=== PATIENT | male | born 1935 | race Caucasian/White ===

== ENCOUNTER 2018-08-12 22:02 | Inpatient (IN) | payer MEDICARE ==
[~2018-08-12 22:02] MED LIST: Heparin 10,000 UNITS/ 10 ML VIAL ONE
--- NOTE | 2018-08-12 23:49 | RAD ---
PORTABLE CHEST: HISTORY: Altered mental status. Weakness. FINDINGS: Heart size is enlarged with a pacemaker in place. There is atelectatic change in the lung bases. IMPRESSION: Cardiomegaly with some bibasilar atelectasis. POS: [facility]
[2018-08-12 23:54] LABS: #Eosinphils 0.6 thou/uL (0.0-0.7); #Lymphocytes 1.4 thou/uL (1.20-3.40); #Monocytes 1.2 thou/uL (0.11-0.59); #Neutrophils 9.1 thou/uL (1.40-6.50); %Basophils 0.4 % (0.0-1.0); %Eosinophils 4.5 % (0.0-10.0); %Lymphocytes 11.4 % (21.0-51.0); %Neutrophils 73.9 % (42.0-75.0); Hemoglobin 10.5 g/dL (14.0-18.0); Mean Corpuscular HGB CONC 34.1 g/dL (32.0-36.0); Mean Corpuscular Hemoglobin 33.2 pg (27.0-31.0); Mean Corpuscular Volume 97.6 fL (78.0-98.0); Mean Platelet Volume 7.7 fL (7.4-10.4); Platelet Count 273 thou/uL (130-400); RBC Distribution Width 13.4 % (11.5-14.5); Red Blood Cell (RBC) Count 3.17 mill/uL (4.70-6.10); White Blood Cell (WBC) Count 12.4 thou/uL (4.8-10.8)
[2018-08-13 00:10] LABS: ALT (SGPT) 17 U/L (8-55); AST (SGOT) 21 U/L (5-34); Albumin 3.8 g/dL (3.4-4.8); Alkaline Phosphatase 105 U/L (40-150); Anion Gap 19 mmol/L (10-20); BUN (Urea Nitrogen) 37 mg/dL (8.4-25.7); Calc. Creatinine Clearance 0 mL/min (70-130); Carbon Dioxide 30 mmol/L (23-31); Chloride 94 mmol/L (98-107); Estimated GFR-MDRD 6; Globulin 2.7 g/dL (2.4-3.5); Glucose 113 mg/dL (83-110); Protein, Total 6.5 g/dL (5.8-8.1); Sodium 139 mmol/L (136-145)
[2018-08-13] MEDS ORDERED: Cefepime 1 GM VIAL ONE (01:10)
[2018-08-13] MEDS ORDERED: Sodium Chloride 0.9% 100 ML ONE (01:10)
[2018-08-13] MEDS ORDERED: Acetaminophen 325 MG TAB PO PRN (03:09)
[2018-08-13] MEDS ORDERED: Senokot S 8.6-50 MG TAB PO PRN (03:09)
[2018-08-13] MEDS ORDERED: Sodium Chloride 0.9% 500 ML IV SCH (03:15)
[2018-08-13] MEDS ORDERED: Sodium Chloride 0.9% 1,000 ML IV SCH (04:00)
--- NOTE | 2018-08-13 04:20 | HP ---
CHIEF COMPLAINT: Generalized weakness. HISTORY OF PRESENT ILLNESS: This is a very pleasant 83-year-old male, who has never been to this hospital before, who comes from [place] for generalized weakness and confusion. The patient apparently lives in an independent living. The daughter had left the room when I saw the patient. Apparently, the patient lives in an independent living, normally gets dialysis, however, missed dialysis yesterday and has been constipated for the past few days, so he had a large bowel movement on Monday. The patient stated he had about three bowel movements and then yesterday he had none. The patient stated for the past couple of days, he has not been eating or drinking very much, just felt really weak and could not get out of bed. The patient's daughter took him to [place] initially. Labs and blood were drawn and the patient was discharged stating to follow up with dialysis in the morning; however, when the patient's daughter tried to get him out of the car, he was very weak and due to this weakness, she brought him to the hospital at [facility]. The patient also complained of some abdominal pain and just generalized weakness. The patient denies any fevers or chills. Denies any chest pain or chest tightness. Denied any shortness of breath. Denies any diarrhea. PAST MEDICAL HISTORY: He has a history of end-stage renal disease, on dialysis. Apparently, he had bilateral nephrectomy. Also, has had a history of cancer, renal cell carcinoma I believe. The patient also has a history of coronary artery disease. Also, has a history of hyperlipidemia and high cholesterol. PAST SURGICAL HISTORY: He has a dialysis fistula on his left arm. He also had bilateral nephrectomy. He has had L4-L5 surgery and surgical history of an appendectomy. ALLERGIES: HE IS ALLERGIC TO CODEINE AND PENICILLIN. MEDICATIONS: 1. Renvela 800 mg three times a day. 2. Sertraline 50 mg daily. 3. Hydrocortisone 20 mg daily. I am not sure why he is on that. SOCIAL HISTORY: Denies any alcohol use, drug use, or smoking history. The patient currently is a full code per patient and again the daughter is not at the bedside. PHYSICAL EXAMINATION: VITAL SIGNS: Temperature of 97.4. His oxygen saturation 100% on room air. Pulse is 73. His blood pressure is 113/34. GENERAL: He is awake, alert, and oriented x2. The patient appears to be very very dehydrated. HEENT: Very dehydrated. Tongue is very dry. The patient is able to speak complete sentences. CV: S1 and S2 present. No murmurs, rubs, or gallops. LUNGS: Clear to auscultation. No rhonchi or wheezes noted. ABDOMEN: Bowel sounds are present x2. Significant pain upon palpation to epigastric area and left lower quadrant. EXTREMITIES: Lower extremity, no edema. Pedal pulses are present x2. NEUROVASCULAR: No focal deficits noted. The patient is able to move all extremities. SKIN: No cuts, lesions, or bruises noted. The patient does have a fistula on his left arm with good bruit. REVIEW OF SYSTEMS: As mentioned, all negative except for the ones mentioned above in the HPI. LABORATORY DATA: WBCs of 12.4, hemoglobin of 10.5, hematocrit of 30.9, and platelets of 273. Chemistry; sodium of 139, potassium of 4.0, BUN of 37, creatinine of 8, lactic acid of 2.9. IMAGING STUDIES: The patient did have a CT abdomen and pelvis which indicated hypodense 1.6 cm lesion to the right lobe of the liver and also multiple bilateral pulmonary nodules. ASSESSMENT AND PLAN: The patient is a very pleasant 83-year-old male who presents to the hospital with complaints of generalized weakness and abdominal pain. 1. Generalized weakness. The patient appears to be significantly dehydrated. We will start the patient on some IV hydration. Consult Dr. Jane for dialysis and continue to monitor. 2. Hypodense lesion in the right lobe of the liver and multiple bilateral pulmonary nodules measuring 1.4 cm. I did mention this to the patient. The patient stated that he does know that he does have lung nodules, I think this should be discussed with the patient's daughter, who currently not at the bedside and it is too early in the morning to call her. I will ask the morning doctor to call the patient's daughter and to be notified about this. 3. End-stage renal disease on dialysis. We will consult Dr. Jane. 4. Dehydration. We will start the patient on some gentle hydration. 5. Lactic acidosis. I believe this is most likely from dehydration. 6. History of kidney cancer, renal carcinoma with bilateral nephrectomy. Again, continue to monitor. The patient is on hydrocortisone for that reason. Job ID: [id number]
[2018-08-13 04:42] VITALS: BMI 28.6
[2018-08-13 06:19] LABS: #Basophils 0.1 thou/uL (0.0-0.2); #Eosinphils 0.6 thou/uL (0.0-0.7); #Lymphocytes 1.6 thou/uL (1.20-3.40); #Monocytes 1.2 thou/uL (0.11-0.59); #Neutrophils 6.1 thou/uL (1.40-6.50); %Basophils 0.6 % (0.0-1.0); %Eosinophils 5.9 % (0.0-10.0); %Lymphocytes 16.5 % (21.0-51.0); %Neutrophils 64.1 % (42.0-75.0); Hemoglobin 10.6 g/dL (14.0-18.0); Mean Corpuscular Hemoglobin 32.4 pg (27.0-31.0); Mean Platelet Volume 7.8 fL (7.4-10.4); Platelet Count 271 thou/uL (130-400); RBC Distribution Width 13.7 % (11.5-14.5); Red Blood Cell (RBC) Count 3.28 mill/uL (4.70-6.10); White Blood Cell (WBC) Count 9.5 thou/uL (4.8-10.8)
[2018-08-13 06:36] LABS: Lactic Acid 2.7 mmol/L (0.5-2.2)
[2018-08-13 06:38] LABS: Anion Gap 22 mmol/L (10-20); BUN (Urea Nitrogen) 39 mg/dL (8.4-25.7); Calc. Creatinine Clearance 10 mL/min (70-130); Calcium 9.8 mg/dL (7.8-10.44); Carbon Dioxide 25 mmol/L (23-31); Chloride 96 mmol/L (98-107); Estimated GFR-MDRD 6; Glucose 104 mg/dL (83-110); Potassium 4.1 mmol/L (3.5-5.1); Sodium 139 mmol/L (136-145)
[2018-08-13] MEDS ORDERED: Hydrocortisone Sod Succ/PF 100 mg/2 ml Vial IVP SCH (08:00)
--- NOTE | 2018-08-13 09:43 | CT ---
PRELIMINARY REPORT/[facility]/EMERGENTY AFTER-HOURS PROCEDURE CT Abdomen and Pelvis Without Contrast EXAM DATE/TIME: 08/13/2018 1:05 AM CLINICAL HISTORY: 83 years old, male; Pain; Abdominal pain; Localized; Left lower quadrant (llq); Patient HX: Er6, m 61 , no prior, PT. Called ems for weakness and diarrhea for two days. PT. Missed dialysis today. Llq julianna n, constipation. TECHNIQUE: Axial computed tomography images of the abdomen and pelvis without contrast. Coronal reformatted images were created and reviewed. COMPARISON: No relevant prior studies available. FINDINGS: Lower thorax: Cardiomegaly. Cardiac device in place. Multiple bilateral pulmonary nodules measuring u p to 1.4 cm in size, most compatible in appearance with metastases, less likely atypical pulmonary infection. ABDOMEN: Liver: Subtle slightly hypodense 1.6 cm lesion in the right lobe of the liver, indeterminate, potenti ally a metastasis. Gallbladder and bile ducts: Normal. No calcified stones. No ductal dilation. Pancreas: Normal. No ductal dilation. Spleen: Normal. No splenomegaly. Adrenals: Normal. No mass. Kidneys and ureters: Prior bilateral nephrectomy. Stomach and bowel: Colonic diverticulosis. No diverticulitis. Mild gaseous distention of the nondepen dent portions of the bowel may contribute to patient discomfort but is not pathologic. No bowel wall thickening or intestinal obstruction. Appendix: Prior appendectomy. PELVIS: Bladder: Unremarkable as visualized. Reproductive: Prostatomegaly. ABDOMEN and PELVIS: Intraperitoneal space: Normal. No free air. No significant fluid collection. Bones/joints: No acute fracture. No dislocation. Soft tissues: Unremarkable. Gynecomastia. Vasculature: Normal. No abdominal aortic aneurysm. Lymph nodes: Normal. No enlarged lymph nodes. IMPRESSION: 1. Subtle slightly hypodense 1.6 cm lesion in the right lobe of the liver, indeterminate, potentially a metastasis. 2. Multiple bilateral pulmonary nodules measuring up to 1.4 cm in size, most compatible in appearance with metastases, less likely atypical pulmonary infection. Thank you for allowing us to participate in the care of your patient. Dictated and Authenticated by: Jae Barrios MD 08/13/2018 1:51 AM Central Time ([place] & [place]) FINAL REPORT CT ABDOMEN AND PELVIS WITHOUT CONTRAST: Date: 08/13/18 FINDINGS/IMPRESSION: I agree with the preliminary report given by Carine. POS: [facility]
--- NOTE | 2018-08-13 09:48 | CT ---
PRELIMINARY REPORT/[facility]/EMERGENTY AFTER-HOURS PROCEDURE CT Head Without Contrast EXAM DATE/TIME: 08/13/2018 12:05 AM CLINICAL HISTORY: 83 years old, male; Signs and symptoms; Altered mental status/memory loss; Patient HX: PT. Called ems for weakness and diarrhea for two days. PT. Missed dialysis today. TECHNIQUE: Axial computed tomography images of the head/brain without contrast. COMPARISON: No relevant prior studies available. FINDINGS: Brain: Volume loss and chronic small vessel ischemic change. No brain edema. No intracranial hemorrha ge. Ventricles: Normal. No ventriculomegaly. Bones/joints: See Mastoid Air Cells Finding. Sinuses: Normal as visualized. No acute sinusitis. Mastoid air cells: Partial opacification of left mastoid air cells with erosion or cortical defect an teriorly (image 4, series 2). There is no overlying inflammation or subperiosteal abscess. No associated skull fracture. Soft tissues: Normal. IMPRESSION: 1. No acute brain findings. 2. Partial opacification of left mastoid air cells with erosion or cortical defect anteriorly (image 4, series 2). There is no overlying inflammation or subperiosteal abscess. No associated skull fractu re. Findings may represent chronic mastoiditis or possibly postsurgical change. Recommend correlation wit h history. Thank you for allowing us to participate in the care of your patient. Dictated and Authenticated by: Jae Barrios MD 08/13/2018 12:19 AM Central Time ([place] & [place]) FINAL REPORT CT BRAIN WITHOUT CONTRAST: Date: 08/13/18 FINDINGS/IMPRESSION: I agree with the preliminary report given by Carine. POS: [facility]
--- NOTE | 2018-08-13 11:25 | PDOC.PN ---
- Subjective Encounter Start Date: 08/13/18 Encounter Start Time: 10:15 Subjective: awakens easily, responds well to verbal questions -: no sob or chest pain - Objective Resuscitation Status - Order Detail: 08/13/18 03:09 Resuscitation Status Routine Resuscitation Status: FULL: Full Resuscitation MAR Reviewed: Yes Vital Signs & Weight: Vital Signs (12 hours) Temp Pulse Resp BP Pulse Ox 08/13/18 09:35 98.4 F 76 24 H 104/54 L 98 08/13/18 08:00 98 08/13/18 03:50 100 Weight Weight 223 lb 4.8 oz Result Diagrams: 08/13/18 06:06 08/13/18 06:06 Phys Exam - Physical Examination HEENT: PERRLA dry mucosa Neck: no JVD, supple Respiratory: no wheezing, no rales Cardiovascular: RRR, no significant murmur Gastrointestinal: soft, non-tender, positive bowel sounds Musculoskeletal: no edema, pulses present Neurological: non-focal, moves all 4 limbs Dx/Plan (1) Acute encephalopathy Code(s): G93.40 - ENCEPHALOPATHY, UNSPECIFIED Status: Acute (2) Physical deconditioning Code(s): R53.81 - OTHER MALAISE Status: Acute (3) ESRD (end stage renal disease) on dialysis Code(s): N18.6 - END STAGE RENAL DISEASE; Z99.2 - DEPENDENCE ON RENAL DIALYSIS Status: Chronic (4) Dyslipidemia Code(s): E78.5 - HYPERLIPIDEMIA, UNSPECIFIED Status: Chronic (5) h/o b/l nephrectomy Status: Chronic (6) H/O renal cell carcinoma Code(s): Z85.528 - PERSONAL HISTORY OF OTHER MALIGNANT NEOPLASM OF KIDNEY Status: Suspected Comment: f/u with [facility] onc (7) Depression Code(s): F32.9 - MAJOR DEPRESSIVE DISORDER, SINGLE EPISODE, UNSPECIFIED Status : Chronic Qualifiers: Depression Type: unspecified Qualified Code(s): F32.9 - Major depressive disorder, single episode, unspecified - Plan d/w daughter, home meds to be updated -: he f/u with hemeonc at [facility], had radiation done to groin after lymph node re -: -section revealed malignancy (daughter is not aware of name), had lung nodu -: -les before which is being serially observed at [facility]. -: In view of all the above will defer liver biopsy to be done at [facility] if neede * . Has PCM, not sure if its MRI compatible for brain mri Will repeat CT if needed in am if needed, currently he responds well to verbal stimuli, is moving all extre. is for HD today one dose 100mg hydrocortisone now (has h/o b/l nephrectomies likely with removal of adrenals?) Review of Systems - Medications/Allergies Allergies/Adverse Reactions: Allergies Allergy/AdvReac Type Severity Reaction Status Date / Time codeine Allergy Verified 08/13/18 03:13 Penicillins Allergy Verified 08/13/18 03:13 Medications: Current Medications Acetaminophen (Tylenol) 650 mg PO Q4H PRN PRN Reason: Headache/Fever/Mild Pain (1-3) Hydrocortisone (Cortef) 40 mg PO QAM [facility] Hydrocortisone (Cortef) 20 mg PO QPM [facility] Hydrocortisone (Cortef) 10 mg PO ASDIR [facility] Sodium Chloride (Normal Saline 0.9%) 1,000 mls @ 50 mls/hr IV .Q20H [facility] Stop: 08/13/18 23:59 Last Admin: 08/13/18 05:02 Dose: Not Given Influenza Virus Vacc Triv Types A&B (Fluzone High-Dose 2017- Syr) 0.5 ml IM .ONCE ONE Stop: 08/14/18 09:01 Last Admin: 08/13/18 08:29 Dose: Not Given Senna/Docusate Sodium (Senokot S) 2 tab PO BID PRN PRN Reason: Constipation Sevelamer Carbonate (Renvela) 1,600 mg PO TID-WM [facility]
--- NOTE | 2018-08-13 11:46 | CON ---
DATE OF CONSULTATION: RENAL MEDICINE HISTORY OF PRESENT ILLNESS: Mr. Lacy is an 83-year-old white male with known history of ESRD, currently on maintenance hemodialysis, on Monday, Monday, and Monday. The patient has been admitted for generalized weakness. He initially went to the ER at [facility] prior to admission, to [facility]. Initial workup there was essentially negative without evidence of CHF or hyperkalemia. For that reason, even though the patient misses regular dialysis, he was not dialyzed. However, on going home, the patient could hardly ambulate at all. For that reason, the patient's daughter brought the patient to [place]. He still could not ambulate. He has generalized weakness. During the initial workup, he had a CAT scan of the abdomen and pelvis and it showed multiple pulmonary nodules on the lower part of the lung. There was also a new finding of liver lesion, which is suspicious for metastases. Please note, this patient has several cancers. He has had renal carcinoma in the past, he also was diagnosed with a right leg sarcoma. In addition, he has had thyroid carcinoma? We are now being consulted for his maintenance hemodialysis. REVIEW OF SYSTEMS: Positive for generalized malaise. Positive for confusion. No nausea. No vomiting. No diarrhea. No constipation. No productive cough. No fever or chills. Decreased appetite. No joint pains. No new skin rash. No headache. Positive for confusion. MEDICATIONS: Home medications; 1. Currently on normal saline at 50 mL/hour. 2. Senokot-S two tablets b.i.d. 3. He is taking hydrocortisone 40 mg in the morning and 20 mg at night and at noontime. This is on nondialysis days. He takes 10 mg after dialysis. 4. Renvela 800 mg three tablets t.i.d. with meals. PAST MEDICAL HISTORY: 1. ESRD, on maintenance hemodialysis, Monday, Monday, and Monday. 2. History of adrenal insufficiency. 3. DJD. 4. Kidney cancer. 5. Thyroid cancer in remission. 6. COPD. 7. History of increased PSA, follicular thyroid cancer. 8. GERD. 9. History of right leg sarcoma. 10. Hypertension. 11. Status post obesity. 12. Status post pneumonia. 13. History of lumbar stenosis. 14. History of bradycardia. PAST SURGICAL HISTORY: Status post cardiac cath, status post pacemaker placement, status post appendectomy, status post AV fistula placement, status post cataract surgery, status post colonoscopy, status post cholecystectomy, and status post bilateral nephrectomy. SOCIAL HISTORY: The patient is , one child, originally from [place], but moved to [place] to join his daughter. Currently no smoking. No alcohol intake. No IV drug abuse. ALLERGIES: UNKNOWN. TRAUMA: None. IMMUNIZATION: Up-to-date. HOSPITALIZATIONS: Please see past medical history. FAMILY HISTORY: No family history of ESRD. PHYSICAL EXAMINATION: VITAL SIGNS: Blood pressure 104/54, heart rate 72, respiratory rate 24, temperature 98.4, and pulse ox 98%. GENERAL: The patient is awake, lethargic, not in distress. SKIN: Adequate turgor. HEENT: He has pinkish conjunctivae. Anicteric sclerae. No neck mass. No carotid bruits. No JVD. CHEST: No deformities. LUNGS: Clear breath sounds. No wheezing. No crackles. HEART: Normal sinus rhythm. No murmur. No gallops or rubs. ABDOMEN: Globular, soft, and nontender. No masses. EXTREMITIES: No edema. No deformities. NEUROLOGIC: Decreased mentation. Moving all extremities. No tremors. LABORATORY DATA: Laboratories of August 13, 2018; white count 9.5, hemoglobin 10.6, hematocrit 32.1. Sodium 139, potassium 4.1, chloride 96, carbon dioxide 25, BUN 39, creatinine 8.43, glucose 104, and calcium 9.8. Lactic acid is 2.7. ASSESSMENT AND PLAN: 1. End-stage renal disease, stable. We will continue current Monday, Monday, and Monday hemodialysis regimen with this patient. Again, fluid removal only as tolerated. Due to the decreased p.o. intake and relatively low blood pressure, my plan today is minimal or no fluid removal with dialysis. He will continue normal saline at 75 mL/h. 2. Adrenal insufficiency. I would suggest restarting back his hydrocortisone at 40 mg in the morning and 20 mg at night. 3. Renal cancer/thyroid cancer/sarcoma-CT scan of the chest showed multiple pulmonary nodules. He may have metastatic lesions. On chest x-ray, this was not noted. 4. Liver lesion-he may have a metastatic lesion in the liver. I would suggest we consider Hematology-Oncology consultation with this patient. 5. Overall, agree with current management. Job ID: [id number]
[2018-08-13] MEDS: Hydrocortisone 10 mg Tablet PO SCH ×2 (12:54→19:52)
[2018-08-13] MEDS: Sevelamer Carbonate 800 MG TAB PO SCH ×2 (12:55→17:53)
[2018-08-13 13:00] LABS: #Eosinphils 0.1 thou/uL (0.0-0.7); #Lymphocytes 0.5 thou/uL (1.20-3.40); #Monocytes 0.4 thou/uL (0.11-0.59); #Neutrophils 11.4 thou/uL (1.40-6.50); %Eosinophils 0.9 % (0.0-10.0); %Lymphocytes 4.1 % (21.0-51.0); %Monocytes 3.1 % (0.0-10.0); %Neutrophils 91.8 % (42.0-75.0); Hemoglobin 9.8 g/dL (14.0-18.0); Mean Corpuscular HGB CONC 33.6 g/dL (32.0-36.0); Mean Corpuscular Hemoglobin 32.8 pg (27.0-31.0); Mean Corpuscular Volume 97.5 fL (78.0-98.0); Mean Platelet Volume 7.7 fL (7.4-10.4); Platelet Count 244 thou/uL (130-400); RBC Distribution Width 13.2 % (11.5-14.5); Red Blood Cell (RBC) Count 2.99 mill/uL (4.70-6.10); White Blood Cell (WBC) Count 12.4 thou/uL (4.8-10.8)
[2018-08-13 13:09] LABS: INR-International Normal Ratio 1.2; PTT 38.1 SEC (22.9-36.1)
[2018-08-13 13:17] LABS: Anion Gap 19 mmol/L (10-20); BUN (Urea Nitrogen) 41 mg/dL (8.4-25.7); Calc. Creatinine Clearance 9 mL/min (70-130); Calcium 9.3 mg/dL (7.8-10.44); Carbon Dioxide 27 mmol/L (23-31); Chloride 96 mmol/L (98-107); Estimated GFR-MDRD 6; Glucose 160 mg/dL (83-110); Potassium 4.6 mmol/L (3.5-5.1); Sodium 137 mmol/L (136-145)
[2018-08-13] MEDS ORDERED: Benzonatate 100 MG CAP PO PRN (23:29)
[2018-08-14] MEDS: Sevelamer Carbonate 800 MG TAB PO SCH ×3 (08:29→17:37)
[2018-08-14] MEDS: Hydrocortisone 10 mg Tablet PO SCH ×3 (08:30→20:23)
[2018-08-14] MEDS ORDERED: Epoetin (ESRD) 20,000 UNITS/ML SC SCH (10:00)
--- NOTE | 2018-08-14 11:03 | PDOC.PN ---
- Subjective Encounter Start Date: 08/14/18 Encounter Start Time: 08:45 Subjective: is alert and oriented well this morning -: no chest pain, is moving all extremities -: no cough or sob - Objective Resuscitation Status - Order Detail: 08/13/18 03:09 Resuscitation Status Routine Resuscitation Status: FULL: Full Resuscitation MAR Reviewed: Yes Vital Signs & Weight: Vital Signs (12 hours) Temp Pulse Resp BP Pulse Ox 08/14/18 07:45 98.6 F 70 20 92/54 L 95 08/14/18 04:26 98.5 F 69 20 137/60 99 08/14/18 00:24 98.5 F 69 20 103/59 L 99 Weight Weight 223 lb 4.8 oz I&O: 08/13/18 08/14/18 08/15/18 06:59 06:59 06:59 Intake Total 810 Output Total 0 Balance 810 Result Diagrams: 08/13/18 12:50 08/13/18 12:50 Phys Exam - Physical Examination HEENT: PERRLA, moist MMs Neck: no JVD, supple Respiratory: no wheezing, no rales Cardiovascular: RRR, no significant murmur Gastrointestinal: soft, non-tender, positive bowel sounds Musculoskeletal: no edema, pulses present Neurological: non-focal, moves all 4 limbs Psychiatric: normal affect, A&O x 3 Dx/Plan (1) Acute encephalopathy Code(s): G93.40 - ENCEPHALOPATHY, UNSPECIFIED Status: Acute Comment: resolving (2) Physical deconditioning Code(s): R53.81 - OTHER MALAISE Status: Acute (3) ESRD (end stage renal disease) on dialysis Code(s): N18.6 - END STAGE RENAL DISEASE; Z99.2 - DEPENDENCE ON RENAL DIALYSIS Status: Chronic (4) Dyslipidemia Code(s): E78.5 - HYPERLIPIDEMIA, UNSPECIFIED Status: Chronic (5) h/o b/l nephrectomy Status: Chronic (6) H/O renal cell carcinoma Code(s): Z85.528 - PERSONAL HISTORY OF OTHER MALIGNANT NEOPLASM OF KIDNEY Status: Suspected Comment: f/u with [facility] onc (7) Depression Code(s): F32.9 - MAJOR DEPRESSIVE DISORDER, SINGLE EPISODE, UNSPECIFIED Status : Chronic Qualifiers: Depression Type: unspecified Qualified Code(s): F32.9 - Major depressive disorder, single episode, unspecified (8) Adrenal insufficiency Code(s): E27.40 - UNSPECIFIED ADRENOCORTICAL INSUFFICIENCY Status: Acute Comment: likely from b/l nephrectomies - Plan is on hydrocortisone tid, slightly higher dose -: sbp around 100 -: had HD yesterday -: MRI brain to r/o cva, has [facility] pcm (daughter says the card is in his w -: -allet), dc plan is to rehab if accepted in am * . Review of Systems - Medications/Allergies Allergies/Adverse Reactions: Allergies Allergy/AdvReac Type Severity Reaction Status Date / Time codeine Allergy Verified 08/13/18 03:13 Penicillins Allergy Verified 08/13/18 03:13 Medications: Current Medications Acetaminophen (Tylenol) 650 mg PO Q4H PRN PRN Reason: Headache/Fever/Mild Pain (1-3) Last Admin: 08/14/18 08:38 Dose: 650 mg Benzonatate (Tessalon) 100 mg PO Q6H PRN PRN Reason: Cough Last Admin: 08/13/18 23:34 Dose: 100 mg Epoetin Kuldeep (Procrit) 7,500 units SC Q7D [facility] Hydrocortisone (Cortef) 40 mg PO QAM [facility] Last Admin: 08/14/18 08:30 Dose: 40 mg Hydrocortisone (Cortef) 20 mg PO QPM [facility] Last Admin: 08/13/18 19:52 Dose: 20 mg Hydrocortisone (Cortef) 10 mg PO 1200 [facility] Last Admin: 08/13/18 12:54 Dose: 10 mg Senna/Docusate Sodium (Senokot S) 2 tab PO BID PRN PRN Reason: Constipation Sevelamer Carbonate (Renvela) 1,600 mg PO TID-WM [facility] Last Admin: 08/14/18 08:29 Dose: 1,600 mg
--- NOTE | 2018-08-14 11:46 | PRG ---
DATE OF SERVICE: 08/14/2018 SERVICE: Renal Medicine. SUBJECTIVE: Mr. Lacy is an 83-year-old white male with ESRD and admitted for mental status change. The patient is now more awake. His energy level is much improved. His initial CT scan of the head did not show any acute intracranial process. However, during the initial workup, he had a CAT scan done in [facility] and partially the lung was visualized, which showed multiple nodules. He tells me that he is being followed up by his Hematology/Oncology in [facility] for this. No other complaints today. His appetite has picked up. OBJECTIVE: VITAL SIGNS: Blood pressure is 92/54, heart rate 70, respiratory rate 20, temperature 98.6, and pulse ox 95%. GENERAL: Awake, alert, comfortable, not in distress. SKIN: Adequate turgor. HEENT: Pinkish conjunctivae. Anicteric sclerae. NECK: No neck mass. No carotid bruits. No JVD. CHEST: No deformities. LUNGS: Clear. Breath sounds, no wheezing. No crackles. HEART: Normal sinus rhythm. No murmurs, gallops, or rubs. ABDOMEN: Globular, soft, nontender. No masses. EXTREMITIES: No edema. No deformities. MEDICATIONS: Medications of 08/14/2018 reviewed. LABORATORY DATA: Laboratories, 08/13/2018, white count 12.4, hemoglobin 9.8. Sodium 137, potassium 4.6, chloride 96, carbon dioxide 27, BUN 41, creatinine 8.64, and calcium 9.3. ASSESSMENT AND PLAN: 1. Borderline anemia. Start Epogen 7500 units subcu every week. 2. Mental status change-this could be secondary to metabolic encephalopathy. On close questioning, the patient has been taking some Tylenol No. 3. We feel that this could have been contributing to his confusion and generalized weakness. This has been discontinued. 3. End-stage renal disease, stable. He underwent hemodialysis yesterday. Minimal fluid was removed due to the low blood pressure. My plan is to resume back the Monday, Monday, and Monday hemodialysis regimen with this patient. 4. Renal cancer/sarcoma-CT scan of the chest showed numerous pulmonary nodules. This is being managed by his oncologist back in [facility]. Job ID: [id number]
[2018-08-15 06:29] LABS: #Lymphocytes 0.8 thou/uL (1.20-3.40); #Monocytes 0.8 thou/uL (0.11-0.59); #Neutrophils 6.5 thou/uL (1.40-6.50); %Basophils 0.3 % (0.0-1.0); %Eosinophils 0.5 % (0.0-10.0); %Lymphocytes 9.8 % (21.0-51.0); %Monocytes 9.7 % (0.0-10.0); %Neutrophils 79.7 % (42.0-75.0); Hemoglobin 9.6 g/dL (14.0-18.0); Mean Corpuscular HGB CONC 33.2 g/dL (32.0-36.0); Mean Corpuscular Hemoglobin 32.2 pg (27.0-31.0); Mean Platelet Volume 7.9 fL (7.4-10.4); Platelet Count 236 thou/uL (130-400); RBC Distribution Width 13.3 % (11.5-14.5); Red Blood Cell (RBC) Count 2.99 mill/uL (4.70-6.10); White Blood Cell (WBC) Count 8.1 thou/uL (4.8-10.8)
[2018-08-15 06:48] LABS: Anion Gap 16 mmol/L (10-20); BUN (Urea Nitrogen) 34 mg/dL (8.4-25.7); Calc. Creatinine Clearance 12 mL/min (70-130); Calcium 9.3 mg/dL (7.8-10.44); Carbon Dioxide 28 mmol/L (23-31); Chloride 97 mmol/L (98-107); Estimated GFR-MDRD 8; Glucose 119 mg/dL (83-110); Potassium 4.1 mmol/L (3.5-5.1); Sodium 137 mmol/L (136-145)
[2018-08-15] MEDS: Hydrocortisone 10 mg Tablet PO SCH ×2 (08:15→12:46)
[2018-08-15] MEDS: Sevelamer Carbonate 800 MG TAB PO SCH ×3 (08:15→17:40)
--- NOTE | 2018-08-15 09:45 | PRG ---
DATE OF SERVICE: 08/15/2018 SUBJECTIVE: Mr. Lacy is an 83-year-old white male with ESRD and currently undergoing hemodialysis. I am at the bedside, supervising his dialysis. We are attempting minimal fluid removal of about 2 L. No other complaints. He is feeling better. His energy level is slightly improved. Please note, he is on hydrocortisone for his adrenal insufficiency. No complaints of chest pain or shortness of breath. OBJECTIVE: VITAL SIGNS: Blood pressure 129/63, heart rate 70, respiratory rate 16, temperature 98.1, pulse ox 94%. GENERAL: Awake, alert, comfortable, supine, not in distress. SKIN: Adequate turgor. HEENT: He has slightly pale conjunctivae. Anicteric sclerae. No neck mass. No carotid bruits. No JVD. CHEST: No deformities. LUNGS: Clear breath sounds. No wheezing. No crackles. HEART: Normal sinus rhythm. No murmurs, gallops, or rubs. ABDOMEN: Globular, soft, and nontender. No masses. EXTREMITIES: No edema. No deformities. MEDICATIONS: Medications of August 15, 2018, were reviewed. LABORATORY DATA: Laboratories of August 15, 2018: White count 8.1, hemoglobin 9.6. Sodium 137, potassium 4.1, chloride 97, carbon dioxide 28, BUN 34, creatinine 6.83, glucose 119, calcium 9.3. ASSESSMENT AND PLAN: 1. Generalized malaise-clinically improved. Continue current hydrocortisone supplementation. 2. End-stage renal disease, stable. We will continue current Monday, Monday , and Monday hemodialysis. Fluid removal only as tolerated. 3. Anemia-continuing weekly Epogen. 4. Metastatic lung lesion-the patient to follow up with his oncologist at [facility]. 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 5. Please note, the patient was givenTylenol with codeine. This could have explained his confusion when he was initially admitted. The medication has been discontinued. He is mentating better. 6. Recheck basic metabolic, CBC in a.m. Job ID: [id number] [facility]
--- NOTE | 2018-08-15 10:29 | PDOC.PN ---
- Subjective Encounter Start Date: 08/15/18 Encounter Start Time: 09:30 Subjective: is getting HD, oriented well, no sob - Objective Resuscitation Status - Order Detail: 08/13/18 03:09 Resuscitation Status Routine Resuscitation Status: FULL: Full Resuscitation MAR Reviewed: Yes Vital Signs & Weight: Vital Signs (12 hours) Temp Pulse Resp BP Pulse Ox 08/15/18 08:13 98.1 F 70 16 129/63 94 L 08/15/18 04:29 98.2 F 70 20 102/58 L 94 L 08/14/18 23:47 98.1 F 69 22 H 105/51 L 97 Weight Weight 223 lb 4.8 oz I&O: 08/14/18 08/15/18 08/16/18 06:59 06:59 06:59 Intake Total 810 780 Output Total 0 0 Balance 810 780 Result Diagrams: 08/15/18 06:03 08/15/18 06:03 Phys Exam - Physical Examination HEENT: PERRLA, moist MMs Neck: no JVD, supple Respiratory: no wheezing, no rales Cardiovascular: RRR, no significant murmur Gastrointestinal: soft, non-tender, positive bowel sounds Musculoskeletal: no edema, pulses present Neurological: non-focal, moves all 4 limbs Psychiatric: A&O x 3 Dx/Plan (1) Acute encephalopathy Code(s): G93.40 - ENCEPHALOPATHY, UNSPECIFIED Status: Resolved (2) Physical deconditioning Code(s): R53.81 - OTHER MALAISE Status: Acute (3) ESRD (end stage renal disease) on dialysis Code(s): N18.6 - END STAGE RENAL DISEASE; Z99.2 - DEPENDENCE ON RENAL DIALYSIS Status: Chronic (4) Dyslipidemia Code(s): E78.5 - HYPERLIPIDEMIA, UNSPECIFIED Status: Chronic (5) h/o b/l nephrectomy Status: Chronic (6) H/O renal cell carcinoma Code(s): Z85.528 - PERSONAL HISTORY OF OTHER MALIGNANT NEOPLASM OF KIDNEY Status: Suspected Comment: f/u with [facility] onc (7) Depression Code(s): F32.9 - MAJOR DEPRESSIVE DISORDER, SINGLE EPISODE, UNSPECIFIED Status : Chronic Qualifiers: Depression Type: unspecified Qualified Code(s): F32.9 - Major depressive disorder, single episode, unspecified (8) Adrenal insufficiency Code(s): E27.40 - UNSPECIFIED ADRENOCORTICAL INSUFFICIENCY Status: Acute Comment: likely from b/l nephrectomies - Plan is on hydrocortisone tid, sbp around 100 -: outpt w/u for liver mass via his onc office -: MRI to r/o cva if his pcm is compatible -: echo results noted, has elevated rv pressures ?sleep apnea -: dc plan to rehab if MRI is -ve * . Review of Systems - Medications/Allergies Allergies/Adverse Reactions: Allergies Allergy/AdvReac Type Severity Reaction Status Date / Time codeine Allergy Verified 08/13/18 03:13 Penicillins Allergy Verified 08/13/18 03:13 Medications: Current Medications Acetaminophen (Tylenol) 650 mg PO Q4H PRN PRN Reason: Headache/Fever/Mild Pain (1-3) Last Admin: 08/14/18 08:38 Dose: 650 mg Benzonatate (Tessalon) 100 mg PO Q6H PRN PRN Reason: Cough Last Admin: 08/13/18 23:34 Dose: 100 mg Epoetin Kuldeep (Procrit) 7,500 units SC Q7D REPLACED BY [facility] Last Admin: 08/14/18 12:45 Dose: 7,500 units Hydrocortisone (Cortef) 40 mg PO QAM REPLACED BY [facility] Last Admin: 08/15/18 08:15 Dose: Not Given Hydrocortisone (Cortef) 20 mg PO QPM REPLACED BY [facility] Last Admin: 08/14/18 20:23 Dose: 20 mg Hydrocortisone (Cortef) 10 mg PO 1200 REPLACED BY [facility] Last Admin: 08/14/18 11:49 Dose: 10 mg Senna/Docusate Sodium (Senokot S) 2 tab PO BID PRN PRN Reason: Constipation Sevelamer Carbonate (Renvela) 1,600 mg PO TID-[facility] Last Admin: 08/15/18 08:15 Dose: Not Given
[2018-08-15 15:44] VITALS: BP 102/52; TEMP 97.9
--- NOTE | 2018-08-16 11:11 | DIS ---
DATE OF ADMISSION: 08/13/2018 DATE OF DISCHARGE: 08/15/2018 DISCHARGE DISPOSITION: To rehab. PRIMARY DISCHARGE DIAGNOSES: 1. Acute encephalopathy, resolved. 2. Severe deconditioning. 3. Adrenal insufficiency with prior history of bilateral nephrectomy. 4. End-stage renal disease, on hemodialysis. 5. History of renal cell carcinoma with prior nephrectomies. 6. Depression. 7. Liver mass and lung masses, for further evaluation with his oncologist, Dr. Leo, at [facility]. PROCEDURES DONE DURING HOSPITALIZATION: Abdominal and pelvic CAT scan without contrast done on the day of admission showed hypodense 1.6 cm lesion in the right lobe of liver, indeterminate, potentially a metastasis and multiple bilateral pulmonary nodules, measuring up to 1.4 cm in size, most compatible in appearance with metastasis. CT brain showed no acute intracranial abnormalities. Echo with 2D Doppler showed an EF of 55% to 60%, markedly enlarged right atrium, severely enlarged right ventricular cavity. LV size was normal. Severe tricuspid regurgitation. Systolic pressures were mildly elevated. Blood cultures x2, no growth. Influenza A and B antigens were negative. White count of 12 with discharge number of 8, H and H 9 and 29, and platelet count 236. Discharge BUN and creatinine 34 and 6.8. Albumin 3.8. LFTs were within normal limits. INPATIENT CONSULT: Dr. Jane for Nephrology. DISCHARGE MEDICATIONS: 1. Hydrocortisone 40 mg p.o. q.a.m. and 20 mg p.o. q.p.m.; 20 mg on Monday, Monday, Monday after dialysis and 10 mg on Monday and . 2. Sertraline 50 mg p.o. at bedtime. 3. Sevelamer 800 mg p.o. three times daily. 4. Folic acid one tablet p.o. daily. ALLERGIES: ALLERGIC TO CODEINE AND PENICILLIN. DISCHARGE PLAN: The patient to follow up with his oncologist, Dr. eLo, at [facility] at the earliest for the liver and lung lesions seen suspicious for metastasis. BRIEF COURSE DURING HOSPITALIZATION: The patient initially got admitted on the with complaints of generalized weakness. The patient also had missed hemodialysis and was constipated prior to arrival. The patient was lethargic with acute encephalopathy on arrival. The patient was given IV hydrocortisone and was placed back on his home dose medication with history of chronic adrenal insufficiency with bilateral nephrectomies, likely removal of adrenal glands as well. His initial CAT scan showed liver mass and also had lung nodules suspicious for metastasis. The patient has known history of renal cell carcinoma and has had close follow-ups with Dr. Leo, his oncologist, at [facility]. In view of this, he is advised to follow up with her at the earliest for further evaluation of these lesions. The patient's encephalopathy resolved after hemodialysis and was hemodynamically stable. He was also neurologically stable, moving all four extremities. He was extremely deconditioned and is being discharged to inpatient rehab for further recuperation prior to going home. Please note, an MRI of the brain could not be done as his pacemaker is [employer] pacemaker, it is not compatible with MRI. A total of 35 minutes was spent on discharge plan. Please see a [id number] documentation on [employer] for the day of discharge. Job ID: [id number]
--- NOTE | 2018-08-17 15:19 | EKG ---
Test Reason : AMS Blood Pressure : / mmHG Vent. Rate : 070 BPM Atrial Rate : 357 BPM P-R Int : 000 ms QRS Dur : 174 ms QT Int : 488 ms P-R-T Axes : 000 -74 091 degrees QTc Int : 527 ms Electronic ventricular pacemaker Confirmed by RAOUL RENEE M.D. ([id number]), supervising film or videotape editor DENISE ACE ([id number]) on 08/17/2018 3:18:56 PM Referred By: Confirmed By:RAOUL RENEE M.D.
== END 2018-08-15 19:31 | DRG 640 ==
LOC: ERS 22:02 → SJJU 08-13 02:00
PROVIDERS: ADMIT Internal Medicine; ATTEND Internal Medicine
PROC: 5A1D70Z Performance of Urinary Filtration, Intermittent, Less than 6 Hours Per Day (ICD-10-PCS; principal; 2018-08-15)
DX: E86.0 Dehydration (principal); N18.6 End stage renal disease; E27.40 Unspecified adrenocortical insufficiency; I12.0 Hypertensive chronic kidney disease with stage 5 chronic kidney disease or end stage renal disease; C78.00 Secondary malignant neoplasm of unspecified lung; G93.40 Encephalopathy, unspecified; E87.2 Acidosis; I25.10 Atherosclerotic heart disease of native coronary artery without angina pectoris; K59.00 Constipation, unspecified; F32.9 Major depressive disorder, single episode, unspecified; K76.9 Liver disease, unspecified; E78.00 Pure hypercholesterolemia, unspecified; M19.90 Unspecified osteoarthritis, unspecified site; Z85.850 Personal history of malignant neoplasm of thyroid; J44.9 Chronic obstructive pulmonary disease, unspecified; K21.9 Gastro-esophageal reflux disease without esophagitis; D64.9 Anemia, unspecified; Z99.2 Dependence on renal dialysis; Z79.899 Other long term (current) drug therapy; Z95.0 Presence of cardiac pacemaker; Z90.49 Acquired absence of other specified parts of digestive tract; Z90.5 Acquired absence of kidney; Z85.528 Personal history of other malignant neoplasm of kidney; Z88.5 Allergy status to narcotic agent; Z88.0 Allergy status to penicillin; Z87.01 Personal history of pneumonia (recurrent); Z98.49 Cataract extraction status, unspecified eye
CPT/HCPCS: 36415; 70450; 71045; 74176; 80048; 80053; 83605; 85025; 85610; 85730; 87040; 87804; 90935; 93005; 93306; 96365; G0257; G8978-GP-CK; G8979-GP-CI; J0692; J1720; J7050; Q4081

== ENCOUNTER 2018-12-04 13:27 | Observation (INO) | payer MEDICARE, OTHER ==
[2018-12-04 14:49] LABS: ALT (SGPT) 20 U/L (8-55); AST (SGOT) 20 U/L (5-34); Albumin 3.9 g/dL (3.4-4.8); Alkaline Phosphatase 159 U/L (40-150); Anion Gap 15 mmol/L (10-20); BUN (Urea Nitrogen) 40 mg/dL (8.4-25.7); Bilirubin, Total 0.7 mg/dL (0.2-1.2); Calc. Creatinine Clearance 0 mL/min (70-130); Calcium 9.9 mg/dL (7.8-10.44); Carbon Dioxide 35 mmol/L (23-31); Chloride 97 mmol/L (98-107); Estimated GFR-MDRD 9; Globulin 2.4 g/dL (2.4-3.5); Glucose 108 mg/dL (83-110); Potassium 4.5 mmol/L (3.5-5.1); Protein, Total 6.3 g/dL (5.8-8.1); Sodium 142 mmol/L (136-145)
--- NOTE | 2018-12-04 14:51 | RAD ---
PORTABLE CHEST ONE VIEW: 12/04/2018 2:22 p.m. HISTORY: Syncope. Fall. Right-sided rib pain. COMPARISON: 08/27/2018 FINDINGS: The heart is enlarged. The aorta is tortuous. A left-sided pacemaker device remains in place. Ther e is a patchy in the right lower lung. This may be due to infection or contusion. No pneumothoraces or large effusions are seen. There is no evidence of german pulmonary edema. POS: ANDRES
[2018-12-04 14:53] LABS: #Eosinphils 0.2 thou/uL (0.0-0.7); #Lymphocytes 0.9 thou/uL (1.20-3.40); #Monocytes 1.3 thou/uL (0.11-0.59); #Neutrophils 8.1 thou/uL (1.40-6.50); %Basophils 0.4 % (0.0-1.0); %Lymphocytes 8.4 % (21.0-51.0); %Monocytes 11.9 % (0.0-10.0); %Neutrophils 77.2 % (42.0-75.0); Hemoglobin 10.5 g/dL (14.0-18.0); Mean Corpuscular HGB CONC 31.5 g/dL (32.0-36.0); Mean Corpuscular Hemoglobin 29.8 pg (27.0-31.0); Mean Corpuscular Volume 94.4 fL (78.0-98.0); Platelet Count 274 thou/uL (130-400); RBC Distribution Width 15.4 % (11.5-14.5); Red Blood Cell (RBC) Count 3.53 mill/uL (4.70-6.10); White Blood Cell (WBC) Count 10.5 thou/uL (4.8-10.8)
[2018-12-04 15:07] LABS: CKMB 1.3 ng/mL (0-6.6)
[2018-12-04] MEDS ORDERED: Lidocaine 5% Patch TD SCH (15:15)
[2018-12-04] MEDS ORDERED: Acetaminophen 500 MG TAB ONE (15:50)
[2018-12-04 18:28] LABS: CKMB 1.2 ng/mL (0-6.6)
[2018-12-04] MEDS ORDERED: Senokot S 8.6-50 MG TAB PO PRN (18:45)
[2018-12-04] MEDS ORDERED: Ondansetron PF 4 MG/2 ML Vial IVP PRN (18:45)
[2018-12-04] MEDS ORDERED: Ondansetron ODT 4 MG TAB PO PRN (18:45)
[2018-12-04 23:28] VITALS: BMI 29.5
[2018-12-04] MEDS: Famotidine 20 MG TAB PO SCH (23:39)
--- NOTE | 2018-12-05 01:20 | HP ---
PRIMARY CARE PHYSICIAN: At [facility]. CHIEF COMPLAINT: Presyncope. HISTORY OF PRESENT ILLNESS: Mr. Lacy is a pleasant 83-year-old male with past medical history of end-stage renal disease, on hemodialysis every Monday, Monday, Monday, history of bilateral nephrectomy with history of renal cell carcinoma, coronary artery disease, hyperlipidemia, and history of adrenal insufficiency, who had presented to [facility] after experiencing a presyncopal episode on Monday and again earlier this morning. He states symptoms appeared when he was sitting in a chair and began to stand up, he states upon standing, he had noticed quite a bit of dizziness that had caused him to fall backwards. He states as he was falling, he had landed back on the chair on his right side and had noticed some right-sided rib pain. He had denied any headache or blurred vision, he had denied any weakness, numbness or tingling, he had denied any chest pain, palpitations, shortness of breath, abdominal pain, nausea or vomiting. He states his primary distribution system operator is Dr. Jane, and had denied missing any days of dialysis. During his initial workup in the emergency department, troponins were found to be indeterminate at 0.057, which trended down to 0.048, creatinine was elevated at 5.97, and estimated GFR of 9. BUN was also elevated at 40. Chest x-ray was performed and it showed the heart is enlarged. Left-sided pacemaker device in place with patchy right lower lung with no pneumothorax or large effusion noted. EKG showed paced ventricular rhythm. He had denied any dizziness or lightheadedness at this time. It is determined that the patient be admitted under observation, and Dr. Jane was consulted for further hemodialysis during hospital course. His vital signs will be monitored including orthostatic vital signs and his pacemaker will be interrogated. REVIEW OF SYSTEMS: All other systems reviewed and found to be negative unless mentioned in the HPI. PAST MEDICAL HISTORY: End-stage renal disease, on hemodialysis; history of renal cell carcinoma status post bilateral nephrectomy, history of coronary artery disease, hyperlipidemia, and adrenal insufficiency. PAST SURGICAL HISTORY: Dialysis fistula placed in the left arm, bilateral nephrectomy, appendectomy, and spinal surgery in L4-L5. SOCIAL HISTORY: Denies any tobacco, alcohol, or illicit drug use. ALLERGIES: HE IS ALLERGIC TO CODEINE AND PENICILLIN. HOME MEDICATIONS: 1. Hydrocortisone 20 mg oral after dialysis Monday, Monday, Monday, 10 mg on non-dialysis days. 2. Sertraline 50 p.o. at bedtime. 3. Renvela 800 mg p.o. 3 times daily. PHYSICAL EXAMINATION: VITAL SIGNS: BP 126/44, pulse 72, respirations 22, temp 97.7 degrees Fahrenheit, O2 saturations 94% on room air. GENERAL: The patient is awake, alert, and oriented x3. No acute distress noted. He is lying comfortably in bed. HEENT: Atraumatic, normocephalic. Pupils are round and reactive to light. Extraocular muscles intact. Moist mucous membranes noted. Oropharynx is clear without exudates or erythema. NECK: Soft and supple. Trachea midline. No JVD noted. CARDIOVASCULAR: Positive S1 and S2. Regular rate and rhythm. The patient with paced rhythm on the monitor. No murmur auscultated. RESPIRATORY: Clear to auscultation bilaterally. No wheezes, rales, or rhonchi. ABDOMEN: Soft, nontender. Bowel sounds present. MUSCULOSKELETAL: Strength 5+ bilaterally in upper and lower extremities. Moves all extremities equal. No edema noted. Fistula noted in left upper extremity with good bruit and thrill. NEUROLOGIC: Cranial nerves 2 through 12 grossly intact. Speech normal and intact. Gait not assessed. SKIN: Warm, dry, and intact. Multiple bruising noted in upper extremities bilaterally. PSYCHIATRIC: Good mood and affect. LABORATORY DATA: WBC 10.5, RBC 3.53, hemoglobin 10.5, platelets 274. Sodium 142, potassium 4.5, anion gap 15, BUN 40, creatinine 5.97, estimated GFR 9, glucose 108, alkaline phosphatase 159, creatine kinase 19, CK-MB 1.3, troponin 0.057, trended down to 0.048. BNP 1000.4. TSH 1.55. DIAGNOSTIC IMAGING: A portable chest x-ray showed the heart is enlarged and the aorta is torturous. A left-sided pacemaker device remains in place. There is a patchy in the right lower lobe, this may be due to infection or contusion. No pneumothorax is noted along with large effusions. No evidence of german pulmonary edema. ASSESSMENT AND PLAN: 1. Presyncopal episodes, this likely can be secondary to orthostatic hypotension, orthostatic vital signs will be checked and pacemaker device will be interrogated. The patient remains asymptomatic at this time. 2. History of end-stage renal disease on dialysis. Nephrology Services, Dr. Jane is consulted and he will be continued on dialysis during hospital course. 3. History of adrenal insufficiency, continue on patient's home regimen of hydrocortisone daily with 20 mg daily on days of dialysis and 10 mg daily on non-dialysis days. 4. Deep venous thrombosis and gastrointestinal prophylaxis. 5. Code status, full code. 6. Surrogate decision maker is the patient's daughter, Mamta Denise. DISPOSITION: Pending further workup and clinical findings. Job ID: [id number]
[2018-12-05] MEDS ORDERED: Lidocaine Patch Removal 1 EACH TOP SCH (03:15)
[2018-12-05 07:07] LABS: #Basophils 0.1 thou/uL (0.0-0.2); #Eosinphils 0.2 thou/uL (0.0-0.7); #Lymphocytes 1.1 thou/uL (1.20-3.40); #Neutrophils 5.5 thou/uL (1.40-6.50); %Basophils 0.7 % (0.0-1.0); %Eosinophils 2.2 % (0.0-10.0); %Lymphocytes 13.7 % (21.0-51.0); %Monocytes 12.9 % (0.0-10.0); %Neutrophils 70.5 % (42.0-75.0); Hemoglobin 10.3 g/dL (14.0-18.0); Mean Corpuscular HGB CONC 31.6 g/dL (32.0-36.0); Mean Corpuscular Hemoglobin 29.4 pg (27.0-31.0); Mean Platelet Volume 8.6 fL (7.4-10.4); Platelet Count 251 thou/uL (130-400); RBC Distribution Width 15.3 % (11.5-14.5); Red Blood Cell (RBC) Count 3.49 mill/uL (4.70-6.10); White Blood Cell (WBC) Count 7.8 thou/uL (4.8-10.8)
[2018-12-05 07:29] LABS: Anion Gap 16 mmol/L (10-20); BUN (Urea Nitrogen) 48 mg/dL (8.4-25.7); Calc. Creatinine Clearance 12 mL/min (70-130); Calcium 9.7 mg/dL (7.8-10.44); Carbon Dioxide 30 mmol/L (23-31); Chloride 98 mmol/L (98-107); Estimated GFR-MDRD 8; Glucose 64 mg/dL (83-110); Potassium 4.5 mmol/L (3.5-5.1); Sodium 139 mmol/L (136-145)
[2018-12-05] MEDS ORDERED: Hydrocortisone 10 mg Tablet PO SCH ×3 (09:00→12:00)
[2018-12-05] MEDS ORDERED: Enoxaparin Sodium 30 MG/0.3 ML SYRINGE SC SCH (09:00)
--- NOTE | 2018-12-05 10:14 | CON ---
DATE OF CONSULTATION: HISTORY OF PRESENT ILLNESS: Mr. Lacy is an 83-year-old white male with ESRD and admitted for a near-syncopal episode. We are now being consulted for his maintenance hemodialysis. He has been having frequent falls. He also has been complaining of right-sided rib pain after his last fall. REVIEW OF SYSTEMS: Positive for near-syncopal episode. Positive for right-sided rib pain. He denies any shortness of breath or abdominal pain. No nausea. No vomiting. Appetite and energy level are fair. No headache. No diplopia. No hematochezia. No melena. No hematemesis. No syncopal episode. MEDICATIONS: Currently on; 1. Lovenox 30 mg subcu daily. 2. Pepcid 20 mg q.p.m. 3. Cortef/hydrocortisone, he takes 20 mg every Monday, Monday, Monday and 10 mg on nondialysis days. 4. Zofran 4 mg q.6 p.r.n. 5. Sertraline 50 mg at bedtime. 6. Renvela 800 mg one tab t.i.d. with meals. PAST MEDICAL HISTORY: 1. ESRD - currently on maintenance hemodialysis Monday, Monday, and Monday. 2. History of adrenal insufficiency. 3. DJD. 4. Kidney cancer, in remission. 5. Thyroid cancer, in remission. 6. Status post bradycardia. 7. Chronic low back pain from lumbar stenosis. 8. Status post pneumonia. 9. Hypertension. 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 11. GERD. 12. History of increased PSA. PAST SURGICAL HISTORY: Status post appendectomy, status post cataract surgery, status post colonoscopy, status post bilateral nephrectomy, status post cholecystectomy, status post cardiac cath, status post pacemaker placement, status post AV fistula placement, status post lymph node excision on the right lower extremity. SOCIAL HISTORY: He is currently in an assisted living. He is a . He has one child, originally from [facility]. He is a retired sheet metal mechanic. Currently, no smoking. No alcohol intake. No IV drug abuse. Status post blood transfusion. ALLERGIES: TO CODEINE AND PENICILLIN. TRAUMA: Status post fall. IMMUNIZATIONS: Up-to-date. HOSPITALIZATIONS: Please see past medical history. PHYSICAL EXAMINATION: VITAL SIGNS: Blood pressure is 126/44, heart rate 72, respiratory rate 22, temperature 97.7, and pulse ox 94% on room air. GENERAL: He is awake, alert, supine, comfortable, not in distress. SKIN: Adequate turgor. HEENT: He has a pinkish conjunctivae. Anicteric sclerae. NECK: No neck mass. No carotid bruits. No JVD. LUNGS: Clear breath sounds. No wheezing. No crackles. HEART: Normal sinus rhythm. No murmur. No gallops. No rubs. ABDOMEN: Globular, soft, and nontender. No masses. EXTREMITIES: No edema. No deformities. NEUROLOGIC: Moving all extremities. Oriented to 3 spheres. No tremors. No asterixis. LABORATORY DATA: Laboratories of December 05, 2018: White count 7.8, hemoglobin 10.3. Sodium 139, potassium 4.5, chloride 98, carbon dioxide 30, BUN 48, creatinine 6.77, glucose 64, and calcium 9.7. TSH is 1.55. IMAGING DATA: On December 04, 2018; chest x-ray shows left-sided pacemaker, patchy right lower lung. No CHF. ASSESSMENT AND PLAN: 1. End-stage renal disease, stable. We will continue current Monday, Monday, and Monday hemodialysis. Fluid removal as tolerated by the patient. Due to the recent fall, we will hold off heparin temporarily with this patient. Please note, he is on prophylactic Lovenox. 2. Near-syncopal episode - the patient placed on telemetry. We will observe for his hemodynamics status. 3. Adrenal insufficiency, currently on hydrocortisone. 4. Hyperphosphatemia. Resume Renvela 800 mg one tab t.i.d. with meals. Agree with current management. Job ID: [id number]
[2018-12-05] MEDS: Acetaminophen 325 MG TAB PO PRN ×2 (11:09→15:34)
[2018-12-05] MEDS: Sevelamer Carbonate 800 MG TAB PO SCH (15:34)
[2018-12-05] MEDS: Famotidine 20 MG TAB PO SCH (20:19)
--- NOTE | 2018-12-06 07:55 | PDOC.PN ---
- Subjective Encounter Start Date: 12/05/18 Encounter Start Time: 13:54 Subjective: Patient states he feels well but with pain in right lower back/ribs. -: Worse with palpation and certain movements. Pain with coughing. -: Denies feeling short of breath. Reports it is the area that hit the wooden arm of his recliner when he fell backwards. He denies any dizzy spells. States he often gets lightheaded if he stands too quickly and feels he did this which caused him to fall backwards into the chair. No central chest pain. No hemoptysis. Able to take deep breaths despite discomfort. Has been tolerating a regular diet. No nauesa or vomiting. No abdominal pain. Has remained afebrile. - Objective Resuscitation Status - Order Detail: 12/04/18 18:38 Resuscitation Status Routine Co-Sign Provider: Resuscitation Status: FULL: Full Resuscitation Vital Signs & Weight: Vital Signs (12 hours) Temp Pulse Resp BP Pulse Ox 12/06/18 07:20 97.9 F 77 20 116/58 L 98 12/06/18 03:01 98 F 70 18 114/56 L 98 12/05/18 20:05 97.8 F 72 16 115/56 L 93 L Weight Weight 229 lb 11.2 oz I&O: 12/05/18 12/06/18 12/07/18 06:59 06:59 06:59 Intake Total 240 Balance 240 Result Diagrams: 12/05/18 06:33 12/05/18 06:33 Phys Exam - Physical Examination Constitutional: NAD HEENT: PERRLA, moist MMs, sclera anicteric Neck: supple, full ROM Respiratory: no wheezing, no rales, no rhonchi, clear to auscultation bilateral Cardiovascular: RRR Gastrointestinal: soft, non-tender, no distention Musculoskeletal: no edema, pulses present Tenderness to right lower back/rib cage. No flail chest or crepitus. No spinal tenderness. Neurological: normal sensation, moves all 4 limbs Psychiatric: normal affect, A&O x 3 Skin: no rash Dx/Plan (1) Postural lightheadedness Code(s): R42 - DIZZINESS AND GIDDINESS Status: Chronic Plan: Occurs when he stands to quickly, usually takes his time. Repeat Orthostatic BPs. (2) Back pain due to injury Code(s): S39.92XA - UNSPECIFIED INJURY OF LOWER BACK, INITIAL ENCOUNTER Status : Acute Plan: Continue with analgesia. (3) Pulmonary contusion Code(s): S27.329A - CONTUSION OF LUNG, UNSPECIFIED, INITIAL ENCOUNTER Status: Acute Plan: Possible RLL pulmonary contusion seen on CXR. No flail chest or crepitus on exam. No indication for CT Chest at present, as per discussion with Dr. Mares. Monitor O2 sats overnight. (4) Dyslipidemia Code(s): E78.5 - HYPERLIPIDEMIA, UNSPECIFIED Status: Chronic (5) ESRD (end stage renal disease) on dialysis Code(s): N18.6 - END STAGE RENAL DISEASE; Z99.2 - DEPENDENCE ON RENAL DIALYSIS Status: Chronic Plan: Seen by Dr. Jane. S/p dialysis this morning. Given pulmonary contusion and ESRD, Lovenox discontinued. - Plan cont current plan of care, PT/OT, incentive spirometry Patients case discussed with Dr. Mares who agrees with plan as above. For possible discharge tomorrow if doing well. Will require PT/OT eval to ensure mobilizing at baseline and able to function as normal at home. Also would benefit from incentive spirometry.
--- NOTE | 2018-12-06 08:36 | PRG ---
DATE OF SERVICE: 12/06/2018 SUBJECTIVE: Mr. Lacy is an 83-year-old white male with known history of ESRD and was initially admitted for a complaint of chest pain secondary to a fall. His right-sided chest pain/rib pain is actually better this morning. He voices no new complaints. He denies any chest pain or shortness of breath. His appetite is somewhat increased. No complaints of show of nausea or vomiting. OBJECTIVE: VITAL SIGNS: Blood pressure 116/58, heart rate 77, respiratory rate 20, temperature 97.9, pulse ox 98%. GENERAL: Awake, alert, comfortable, not in overt distress. SKIN: Adequate turgor. HEENT: He has pinkish conjunctivae. Anicteric sclerae. NECK: No neck mass. No carotid bruits. No JVD. CHEST: No deformities. LUNGS: Clear breath sounds. HEART: Normal sinus rhythm. No murmurs, gallops, or rubs. ABDOMEN: Globular, soft, nontender. No masses. EXTREMITIES: No edema, no deformities. MEDICATIONS: On December 06, 2018, reviewed. LABORATORY DATA: On December 05, 2018; white count 7.8, hemoglobin 10.3. Sodium 139, potassium 4.5, chloride 98, carbon dioxide 30, BUN 48, creatinine 6.77, glucose 64, calcium 9.7. ASSESSMENT AND PLAN: 1. End-stage renal disease, stable, tolerating current hemodialysis regimen. Fluid removal as tolerated by the patient. There is no indication for any dialytic intervention today. 2. Anemia-we will start him back on his Epogen at 7500 units subcu weekly. We will again recheck CBC in a.m. 3. Status post fall/near syncopal episode, stable. No recurrence of any syncopal episode. 4. Chest pain is actually also much improved. Job ID: [id number]
[2018-12-06 08:55] LABS: #Eosinphils 0.2 thou/uL (0.0-0.7); #Lymphocytes 1.4 thou/uL (1.20-3.40); #Neutrophils 5.9 thou/uL (1.40-6.50); %Basophils 0.4 % (0.0-1.0); %Eosinophils 2.9 % (0.0-10.0); %Lymphocytes 16.4 % (21.0-51.0); %Monocytes 11.4 % (0.0-10.0); %Neutrophils 68.9 % (42.0-75.0); Hemoglobin 10.6 g/dL (14.0-18.0); Mean Corpuscular HGB CONC 31.5 g/dL (32.0-36.0); Mean Corpuscular Hemoglobin 29.5 pg (27.0-31.0); Mean Corpuscular Volume 93.7 fL (78.0-98.0); Mean Platelet Volume 7.7 fL (7.4-10.4); Platelet Count 261 thou/uL (130-400); Red Blood Cell (RBC) Count 3.61 mill/uL (4.70-6.10); White Blood Cell (WBC) Count 8.6 thou/uL (4.8-10.8)
[2018-12-06] MEDS ORDERED: EPOETIN ALFA-EPBX (ESRD) 4,000 UNIT/ML VIAL SC SCH (09:00)
[2018-12-06] MEDS ORDERED: Hydrocortisone 10 mg Tablet PO SCH (09:00)
[2018-12-06] MEDS ORDERED: traMADol HCl 50 MG TAB PO SCH (09:17)
[2018-12-06 09:20] LABS: Anion Gap 17 mmol/L (10-20); BUN (Urea Nitrogen) 27 mg/dL (8.4-25.7); Calc. Creatinine Clearance 16 mL/min (70-130); Calcium 9.7 mg/dL (7.8-10.44); Carbon Dioxide 29 mmol/L (23-31); Chloride 97 mmol/L (98-107); Estimated GFR-MDRD 11; Glucose 113 mg/dL (83-110); Potassium 4.3 mmol/L (3.5-5.1); Sodium 139 mmol/L (136-145)
--- NOTE | 2018-12-06 09:25 | PDOC.PN ---
- Subjective Encounter Start Date: 12/06/18 Encounter Start Time: 09:22 Subjective: Patient resting comfortably but with cough. States he choked on something -: he was eating. Has been eating with bed elevated at 45 degrees due to pain -: in right lower back/ribs if sat upright. States if not moving pain is 3/10 If he moves, pain is 10/10 at times. Reluctant to take Narcotics for pain. No significant relief with Acetaminophen unless he lays still. Has been up and around to the bedside commode and with PT, but reports most of the pain is when he tries to lay back down in bed. Has an allergy to codeine but doesnt recall what reaction as it was several years ago. Does not recall any allergy to Tramadol. - Objective Resuscitation Status - Order Detail: 12/04/18 18:38 Resuscitation Status Routine Co-Sign Provider: Resuscitation Status: FULL: Full Resuscitation Vital Signs & Weight: Vital Signs (12 hours) Temp Pulse Resp BP Pulse Ox 12/06/18 07:20 97.9 F 77 20 116/58 L 98 12/06/18 03:01 98 F 70 18 114/56 L 98 Weight Weight 229 lb 11.2 oz I&O: 12/05/18 12/06/18 12/07/18 06:59 06:59 06:59 Intake Total 240 Balance 240 Result Diagrams: 12/06/18 08:48 12/06/18 08:06 Phys Exam - Physical Examination Constitutional: NAD Persistent coughing, laying with HOB at 30 degree angle just after eating breakfast. Feels something in his throat. HEENT: PERRLA Neck: supple, full ROM Respiratory: clear to auscultation bilateral Cardiovascular: RRR Gastrointestinal: soft, non-tender, no distention Musculoskeletal: no edema Tenderness to palpation of R light back, no crepitus or bruising. no flail chest Neurological: normal sensation, moves all 4 limbs Psychiatric: normal affect, A&O x 3 Skin: no rash, normal turgor Dx/Plan (1) Back pain due to injury Code(s): S39.92XA - UNSPECIFIED INJURY OF LOWER BACK, INITIAL ENCOUNTER Status : Acute Plan: Patient agreeable to try Tramadol for pain. Advised to sit upright when eating to avoid aspiration. Rib series Xray. Rehab screening, as seems to be struggling with mobility due to pain. (2) Postural lightheadedness Code(s): R42 - DIZZINESS AND GIDDINESS Status: Chronic Plan: Orthostatic BPs normal. Awaiting PPM interrogation (3) Pulmonary contusion Code(s): S27.329A - CONTUSION OF LUNG, UNSPECIFIED, INITIAL ENCOUNTER Status: Acute Plan: Lovenox discontinued yesterday, started on admission for DVT prophylaxis. O2 sats stable, no sob or hemoptysis. Incentive Spirometry. (4) ESRD (end stage renal disease) on dialysis Code(s): N18.6 - END STAGE RENAL DISEASE; Z99.2 - DEPENDENCE ON RENAL DIALYSIS Status: Chronic Plan: Continue as per Dr. Jane. Patient hx of bilateral nephrectomy. Received dialysis yesterday morning. No evidence of fluid overload one exam. (5) COPD (chronic obstructive pulmonary disease) Status: Acute Plan: Duonebs scheduled. Currently with nonproductive cough after breakfast. Monitor for signs of infection, risk for aspiration pneumonia. Advised to sit upright when eating which he will attempt to do. Not requiring Oxygen this morning. Denies any SOB. - Plan cont current plan of care, incentive spirometry, DVT proph w/SCDs Patients case discussed with Dr. Dowling who agrees with plan as above. * . Review of Systems - Review of Systems Constitutional: negative: fever, chills, sweats, weakness, malaise Eyes: Pain. negative: Vision Change, Conjunctivae Inflammation, Eyelid Inflammation, Redness ENT: negative: Ear Pain, Ear Discharge, Nose Pain, Nose Discharge, Nose Congestion, Mouth Pain, Mouth Swelling, Throat Pain, Throat Swelling Respiratory: Cough (started this morning after eating, states food "went down wrong pipe"). negative: Dry, Shortness of Breath, Hemoptysis, SOB with Excertion, Pleuritic Pain, Sputum, Wheezing Cardiovascular: negative: chest pain, palpitations, orthopnea, paroxysmal nocturnal dyspnea, edema, light headedness Gastrointestinal: negative: Nausea, Vomiting, Abdominal Pain, Diarrhea, Constipation, Melena, Hematochezia Genitourinary: negative: Dysuria, Frequency, Incontinence, Hematuria, Retention Musculoskeletal: Back Pain (Right lower back/lateral chest, no crepitus, no bruising). negative: Neck Pain, Shoulder Pain, Arm Pain, Hand Pain, Leg Pain, Foot Pain Skin: negative: Rash, Lesions, Odell, Bruising Neurological: negative: Weakness, Numbness, Incoordination, Change in Speech, Confusion, Seizures - Medications/Allergies Allergies/Adverse Reactions: Allergies Allergy/AdvReac Type Severity Reaction Status Date / Time codeine Allergy Verified 08/13/18 03:13 iodine Allergy Verified 12/04/18 23:29 Penicillins Allergy Verified 08/13/18 03:13 Medications: Current Medications Acetaminophen (Tylenol) 650 mg PO Q4H PRN PRN Reason: Headache/Fever/Mild Pain (1-3) Last Admin: 12/05/18 15:34 Dose: 650 mg Albuterol/Ipratropium (Duoneb) 3 ml NEB [id number] Famotidine (Pepcid) 20 mg PO QPM [facility] Last Admin: 12/05/18 20:19 Dose: 20 mg Ferrous Sulfate (Feosol) 325 mg PO BID-[facility] Hydrocortisone (Cortef) 10 mg PO [id number]@0900 [facility] Hydrocortisone (Cortef) 20 mg PO MoWeFr@1200 [facility] Last Admin: 12/05/18 15:34 Dose: 20 mg Ondansetron HCl (Zofran Odt) 4 mg PO Q6H PRN PRN Reason: Nausea/Vomiting Ondansetron HCl (Zofran) 4 mg IVP Q6H PRN PRN Reason: Nausea/Vomiting Senna/Docusate Sodium (Senokot S) 2 tab PO BID PRN PRN Reason: Constipation Sertraline HCl (Zoloft) 50 mg PO [facility] Last Admin: 12/05/18 20:19 Dose: 50 mg Sevelamer Carbonate (Renvela) 800 mg PO DAILY [facility] Last Admin: 12/05/18 15:34 Dose: 800 mg Tramadol HCl (Ultram) 50 mg PO Q4H PRN PRN Reason: Pain Tramadol HCl (Ultram) 50 mg PO ONE ONE Stop: 12/06/18 09:18
[2018-12-06] MEDS: Sevelamer Carbonate 800 MG TAB PO SCH (09:59)
[2018-12-06] MEDS: Acetaminophen 325 MG TAB PO PRN (15:00)
--- NOTE | 2018-12-06 16:34 | RAD ---
RIGHT RIB SERIES: History: Injury. Right hip pain. FINDINGS/IMPRESSION: No right sided rib fracture is seen. There is an infiltrate in the right lower lung. POS: OFF
[2018-12-06] MEDS ORDERED: Ferrous Sulfate 325 MG TAB PO SCH (17:00)
[2018-12-06] MEDS ORDERED: Azithromycin 250 MG TAB PO SCH (19:30)
[2018-12-06 19:54] VITALS: BP 115/87; TEMP 97.4
[2018-12-06] MEDS: Famotidine 20 MG TAB PO SCH (20:33)
[2018-12-06] MEDS ORDERED: traMADol HCl 50 MG TAB PO PRN (22:30)
--- NOTE | 2018-12-07 10:58 | DIS ---
DATE OF ADMISSION: 12/04/2018 DATE OF DISCHARGE: 12/06/2018 This is SHAWN Rodas dictating a report for Fernando Dowling MD. DISCHARGE DIAGNOSES: 1. Pulmonary contusion. 2. Right posterolateral chest pain. 3. Postural lightheadedness, resolved and chronic. 4. End-stage renal disease, on dialysis. 5. Chronic obstructive pulmonary disease. CONSULTING PHYSICIAN: Dr. Jane, Nephrology. HOSPITAL COURSE: Mr. Lacy is a very pleasant 83-year-old man, who presented to the ED after sustaining an injury to his right lower back. He was getting up out of his recliner when he fell backwards hitting his right lower back into the foot and arm chair. He had severe pain, which seemed to be improved with tramadol given during this hospitalization. The patient states he often feels lightheaded when he gets up too quickly, and that is what happened when he tried to stand from the recliner. He denies having any syncopal episode. No chest pain associated with the episode or shortness of breath. He has otherwise been in his usual state of health. Given the fact that he has end-stage renal disease, Dr. Jane was consulted and the patient was seen and underwent dialysis during his admission as scheduled. He underwent chest x-ray imaging in the ER, which showed patchy change in the right lower lung possibly due to infection or contusion with no pneumothoraces or large effusions present and no evidence of german pulmonary edema. Laboratory studies remained unremarkable for any infectious process. He also remained afebrile. The patient underwent additional imaging with rib series, which confirmed no right-sided rib fracture present. He was noted to have an infiltrate in the right lower lung. Therefore, started on antibiotics with azithromycin. The patient did well throughout his stay despite the discomfort that persisted. With analgesia, he was able to mobilize when seen by Physical Therapy. He was continued on DuoNeb and encouraged to continue incentive spirometry. He underwent ABS screening and was discharged to inpatient rehab. REVIEW OF SYSTEMS: On day of discharge, the patient continues to have right lower back discomfort, managed with analgesia, worse with certain movements. No cough or hemoptysis. He remains afebrile. No nausea or vomiting. Tolerating oral intake. No bowel changes or urinary symptoms. All other review of systems are negative. PHYSICAL EXAMINATION: GENERAL: The patient appears well developed, well nourished, is in no acute distress. VITAL SIGNS: Temperature 97.4, pulse 70, respirations 18, O2 sat 100% on 1 L of O2 per nasal cannula, and blood pressure 115/87. Orthostatic blood pressure was checked and with no significant drop. HEENT: Normocephalic and atraumatic. Pupils are equal, round, and reactive to light. Sclerae without icterus. Oropharynx is clear. NECK: Supple without lymphadenopathy. LUNGS: Clear to auscultation bilaterally with reduced breath sounds at the bases. No crackles or wheezing. CARDIAC: Regular rhythm. ABDOMEN: Soft, obese, nontender, and nondistended. Discomfort into the right posterolateral rib cage, but no flail chest, subcutaneous emphysema or abnormality. EXTREMITIES: Without edema. NEUROLOGIC: Alert and oriented x3. SKIN: Without rash or jaundice. INVESTIGATIONS: As mentioned above in HPI. CONDITION: Stable at discharge. DIET: Heart healthy/renal diet. ACTIVITY: As tolerated as per inpatient rehab. DISCHARGE MEDICATIONS: The patient was given a prescription for azithromycin 250 mg p.o. daily x4 days. FOLLOWUP: Advised to follow up with primary care physician within 1 week and to continue to follow with Dr. Jane for dialysis. Advised to continue incentive spirometry. DISPOSITION: The patient medically cleared for discharge to [facility]. His case was discussed with Dr. Dowling, who agrees with plan of care as described above. Job ID: [id number]
== END 2018-12-06 20:43 ==
LOC: ERS 13:27 → 2NO 18:22
PROVIDERS: ADMIT Emergency Medicine; ATTEND Emergency Medicine
DX: R55 Syncope and collapse (principal); R42 Dizziness and giddiness; I12.0 Hypertensive chronic kidney disease with stage 5 chronic kidney disease or end stage renal disease; N18.6 End stage renal disease; D63.1 Anemia in chronic kidney disease; I25.10 Atherosclerotic heart disease of native coronary artery without angina pectoris; E78.5 Hyperlipidemia, unspecified; E27.40 Unspecified adrenocortical insufficiency; J44.9 Chronic obstructive pulmonary disease, unspecified; M19.90 Unspecified osteoarthritis, unspecified site; M48.061 Spinal stenosis, lumbar region without neurogenic claudication; K21.9 Gastro-esophageal reflux disease without esophagitis; E83.39 Other disorders of phosphorus metabolism; S39.92XA Unspecified injury of lower back, initial encounter; S27.329A Contusion of lung, unspecified, initial encounter; Z99.2 Dependence on renal dialysis; Z90.5 Acquired absence of kidney; Z85.528 Personal history of other malignant neoplasm of kidney; Z79.899 Other long term (current) drug therapy; Z88.0 Allergy status to penicillin; Z88.5 Allergy status to narcotic agent; Z91.041 Radiographic dye allergy status; W18.39XA Other fall on same level, initial encounter
CPT/HCPCS: 71045; 71100; 80048 ×2; 82550; 82553; 83880; 84484 ×2; 85025 ×2; 93005; 94640 ×2; 96372 ×2; 97110; 97139 ×4; 97530 ×3; 99285; G0378 ×2; Q5105; 36415; 80053; 84443; 90935; G0257; J1650; J7620

== ENCOUNTER → 2019-01-08 | Day surgery (SDC) | payer MEDICARE ==
[2019-01-07 12:00] VITALS: BMI 29.4
[~2019-01-08] MED LIST changes: +Bupivacaine HCl 0.5%/Epinephrine 1:200,000/PF 30 ml Vial ONE; +Fentanyl 100 MCG/2 ML VIAL ONE; +Heparin 5,000 UNITS/ML VIAL ONE; +Ketamine 50 MG/ML (10ML VIAL) ONE; +Levofloxacin 500 mg/D5W 100 ml Premix Bag ONE; +Lidocaine 2% PF 5 ML VIAL ONE; +Ondansetron HCl/PF 4 MG/2 ML Vial IVP PRN; +Ondansetron PF 4 MG/2 ML Vial ONE; +PROPOFOL 200 MG/20 ML VIAL ONE; +Promethazine HCl 25 MG/ML VIAL IM PRN; +Promethazine HCl 25 MG/ML VIAL SLOW IVP PRN; +Protamine Sulfate 50 MG/5 ML VIAL ONE
[2019-01-08 12:05] LABS: #Eosinphils 0.1 thou/uL (0.0-0.7); #Lymphocytes 0.8 thou/uL (1.20-3.40); #Monocytes 0.8 thou/uL (0.11-0.59); %Basophils 0.2 % (0.0-1.0); %Eosinophils 0.6 % (0.0-10.0); %Lymphocytes 6.9 % (21.0-51.0); %Monocytes 6.5 % (0.0-10.0); %Neutrophils 85.8 % (42.0-75.0); Mean Corpuscular HGB CONC 32.1 g/dL (32.0-36.0); Mean Corpuscular Hemoglobin 29.5 pg (27.0-31.0); Mean Corpuscular Volume 91.8 fL (78.0-98.0); Mean Platelet Volume 7.5 fL (7.4-10.4); Platelet Count 288 thou/uL (130-400); RBC Distribution Width 15.4 % (11.5-14.5); Red Blood Cell (RBC) Count 3.72 mill/uL (4.70-6.10); White Blood Cell (WBC) Count 11.6 thou/uL (4.8-10.8)
[2019-01-08 12:37] LABS: Anion Gap 22 mmol/L (10-20); BUN (Urea Nitrogen) 84 mg/dL (8.4-25.7); Calc. Creatinine Clearance 10 mL/min (70-130); Calcium 9.9 mg/dL (7.8-10.44); Carbon Dioxide 26 mmol/L (23-31); Chloride 89 mmol/L (98-107); Estimated GFR-MDRD 7; Glucose 116 mg/dL (83-110); Potassium 5.1 mmol/L (3.5-5.1); Sodium 132 mmol/L (136-145)
--- NOTE | 2019-01-09 01:35 | OP ---
DATE OF PROCEDURE: 01/08/2019 PREOPERATIVE DIAGNOSES: Aneurysms, left arteriovenous fistula, antecubital area and just above cephalic vein fistula, left upper arm. POSTOPERATIVE DIAGNOSIS: Aneurysms, left arteriovenous fistula, antecubital area and just above cephalic vein fistula, left upper arm. PROCEDURES PERFORMED: Repair of 2 aneurysms, AV fistula, left arm, 1 at the antecubital area and 1 just above. ANESTHESIA: Regional, TIVA, local of 0.5% Marcaine with epinephrine 30 mL mixed to 2% Xylocaine 10 mL. DESCRIPTION OF PROCEDURE: The patient was taken to the operating room under regional anesthesia. Left upper extremity was prepared with ChloraPrep and draped in routine fashion. The patient was given 6000 units of heparin intravenously. The ellipse of skin overlying each of the aneurysms described was excised and fistula dissected free circumferentially. After adequate circulation time of heparin administered 6000 units of heparin, the fistula was clamped proximally and distally and the aneurysm was repaired by excising ellipse of skin and aneurysmal wall over each aneurysm and then plication suture running to and fro suture 4-0 Prolene used to repair the aneurysms individually. Once the 2 aneurysms were repaired, the vascular clamps were released and there was good flow on the fistula. Subcutaneous tissue was approximated with 3-0 Monocryl, skin with subdermal 4-0 Monocryl and Dermaglue applied. Jessie marker used to birgit the upper fistula that can be accessed and marked no on the fistula recently repaired. Job ID: [id number]
== END ==
LOC: SDC 11:02
PROVIDERS: ATTEND Specialist
PROC: 03180ZD Bypass Left Brachial Artery to Upper Arm Vein, Open Approach (ICD-10-PCS; principal; 2019-01-08)
DX: I77.0 Arteriovenous fistula, acquired (principal); N18.6 End stage renal disease; Z88.0 Allergy status to penicillin; Z88.5 Allergy status to narcotic agent
CPT/HCPCS: 36415; 80048; 85025; J0670; J1644; J1956; J2001; J2405; J2704; J2720; J3010

== ENCOUNTER 2019-01-09 08:38 | Emergency (ER) | payer MEDICARE ==
--- NOTE | 2019-01-09 09:31 | RAD ---
Radiograph left shoulder 3 views: HISTORY: 83-year-old male status post fall, trauma to left shoulder FINDINGS: Moderate to severe bony hypertrophy of distal tip of clavicle with moderate DJD of AC joint. Mild DJD of glenohumeral joint. No acute fracture identified. No dislocation. Left subclavian pacemaker generator. IMPRESSION: 1. No evidence of acute fracture. 2. Osteoarthrosis
--- NOTE | 2019-01-09 09:33 | RAD ---
Radiograph left elbow 4 views: HISTORY: Acute traumatic injury to elbow FINDINGS: No fracture identified. No dislocation. There is positive anterior and posterior fat-pad sign. IMPRESSION: 1. No fracture identified. 2. Distention of the joint capsule raising the possibility of occult nondisplaced fracture or ligamen tous/tendinous injury. 3. Recommend follow-up 4 view radiographs of left elbow in 5-10 days.
--- NOTE | 2019-01-09 09:34 | CT ---
CT BRAIN WITHOUT CONTRAST: HISTORY:Fall, headache COMPARISON:12/12/2018 FINDINGS: There are foci of decreased attenuation in the periventricular white matter, consistent with chronic small vessel ischemic disease. Cortical atrophy is again seen. No evidence of acute infarct, hemorrhage, midline shift or abnormal extra-axial fluid collections is seen. The ventricular size is appropriate and the basilar cisterns are patent. The bony calvarium is intact. The visualized paranasal sinuses are well aerated. Opacification of the left mastoid air cells with a nterior cortical defect is stable. IMPRESSION: No CT evidence of acute intracranial process.
--- NOTE | 2019-01-09 09:34 | RAD ---
Radiograph left wrist 3 views: HISTORY: Traumatic injury due to fall FINDINGS: No fracture identified. If there is snuffbox tenderness that suggests an occult scaphoid fracture, th en the general recommendations immobilization and follow-up imaging in 5-10 days. No dislocation. IMPRESSION: No fracture identified.
[2019-01-09] MEDS ORDERED: Ondansetron PF 4 MG/2 ML Vial ONE (10:10)
[2019-01-09] MEDS ORDERED: Morphine 4 MG/ML VIAL ONE (10:10)
[2019-01-09] MEDS ORDERED: Bacitracin Zinc 1 Packet ONE ×2 (10:20→11:02)
== END 2019-01-09 12:06 | disposition home or self-care (01) ==
LOC: ERS 08:38
DX: S41.112A Laceration without foreign body of left upper arm, initial encounter (principal); F32.9 Major depressive disorder, single episode, unspecified; W07.XXXA Fall from chair, initial encounter
CPT/HCPCS: 70450; 93005; 96374; 96375; J2270; J2405